=== PATIENT | female | born 1960 | race African-American/Black ===

== ENCOUNTER 2016-09-05 13:10 | Day surgery (SDC) | payer MEDICARE ==
[2004-07-27 06:17] VITALS: BP 107/60
[2016-09-05] VITALS (8 sets, daily range): BP systolic 112–136; BP diastolic 73–93; PULSE 90–102; TEMP 97.5–98.4
[~2016-09-05] VITALS: Ht 165.1 cm; Wt 63.3 kg
[~2016-09-05 13:10] MED LIST: AMOXICILLIN 8751 TAB PO; DEPAKOTE ER 50500 MG PO; DEPO; DIFLUCAN 100MG100 MG PO; IMITREX 25MG TA25 MG PO; MOTRIN 600600 MG/TAB PO; MULTI VITAMINS1 TAB PO; NO HOME MEDICATIONS; PERCOCET 325 MG1 TA2 PO; PREDNISONE20 MG PO; SINGULAIR 110 MG/TAB PO; SYNTHROID0.075 MG/T PO; SYNTHROID0.088 MG/T PO; TRIAMCINOLONE0.1% TP; [UNRECOGNIZED DRUG - OTHER] PO
== END 2016-09-05 16:50 | disposition home or self-care (01) ==
LOC: SDCO 13:10
DX: Z12.11 Encounter for screening for malignant neoplasm of colon (principal); K21.9 Gastro-esophageal reflux disease without esophagitis; K92.1 Melena; F41.9 Anxiety disorder, unspecified; K29.70 Gastritis, unspecified, without bleeding; B19.10 Unspecified viral hepatitis B without hepatic coma; I10 Essential (primary) hypertension; F41.0 Panic disorder [episodic paroxysmal anxiety]; M81.0 Age-related osteoporosis without current pathological fracture; R13.10 Dysphagia, unspecified; Z85.038 Personal history of other malignant neoplasm of large intestine; Z80.0 Family history of malignant neoplasm of digestive organs; Z86.010 Personal history of colon polyps
CPT/HCPCS: OP; J2250; J3010; J7030

== ENCOUNTER 2017-04-12 14:44 | Emergency (ER) | payer MEDICARE, MEDICAID ==
[~2017-04-12] VITALS: Ht 165.1 cm; Wt 65.5 kg
[2017-04-12 14:48] VITALS: BP 141/96; PULSE 100; TEMP 97.1
[2017-04-12] MEDS ORDERED: NASACORT OTC NS (15:13)
== END 2017-04-12 15:24 | disposition home or self-care (01) ==
LOC: COL.ER 14:44
DX: H69.83 Other specified disorders of Eustachian tube, bilateral (principal); J06.9 Acute upper respiratory infection, unspecified; E03.9 Hypothyroidism, unspecified; Z88.5 Allergy status to narcotic agent

== ENCOUNTER → 2017-04-18 | Outpatient (REF) ==
[~2017-04-18] MED LIST changes: +NASACORT OTC NS
== END ==
LOC: ZLAB.WCH 18:46
DX: Z01.89 Encounter for other specified special examinations (principal)

== ENCOUNTER → 2017-07-20 | Outpatient (REF) | LOC: ZLAB.WCH 14:23 | DX: Z01.89 Encounter for other specified special examinations (principal) ==

== ENCOUNTER 2017-10-17 12:53 | Emergency (ER) | payer MEDICARE, MEDICAID ==
[2004-07-27 06:17] VITALS: BP 107/60
[~2017-10-17] VITALS: Ht 165.1 cm; Wt 64.5 kg
[2017-10-17 13:01] VITALS: BP 127/91; TEMP 98.2
[2017-10-17] MEDS ORDERED: AMOXICILLI400 MG/51 PO (14:31)
[2017-10-17] MEDS ORDERED: SINGULAIR 110 MG/TAB PO (14:31)
[2017-10-17] MEDS ORDERED: LEVOXYL0.112 MG PO (14:32)
[2017-10-17 15:28] LABS: COLLECTION METHOD CLEAN CATCH
[2017-10-17 15:37] LABS: MUCOUS Present /lpf; PH 5 (5-8); URINE APPEARANCE Clear; URINE BACTERIA None Seen /hpf; URINE BILIRUBIN Negative (NEGATIVE); URINE BLOOD Negative (NEGATIVE); URINE COLOR Yellow; URINE GLUCOSE Negative (NEGATIVE); URINE KETONE Negative (NEGATIVE); URINE LEUKOCYTE ESTERASE 1+ (NEGATIVE); URINE NITRATE Negative (NEGATIVE); URINE PROTEIN(semi-quant) Negative (NEGATIVE); URINE RBC 0-2 /hpf; URINE UROBILINOGEN Negative (NEGATIVE)
[2017-10-17] MEDS ORDERED: MAGIC MOUTH PO (16:19)
[2017-10-17] MEDS ORDERED: DIFLUCAN150 MG PO (16:19)
[2017-10-17 16:23] VITALS: PULSE 82
== END 2017-10-17 16:24 | disposition home or self-care (01) ==
LOC: COL.ER 12:53
PROVIDERS: Nurse Practitioner
DX: B37.9 Candidiasis, unspecified (principal); R21 Rash and other nonspecific skin eruption

== ENCOUNTER 2019-07-28 17:12 | Emergency (ER) | payer MEDICARE, MEDICAID ==
[2004-07-27 06:17] VITALS: BP 107/60
[~2019-07-28] VITALS: Ht 165.1 cm; Wt 63.6 kg
[~2019-07-28 17:12] MED LIST changes: +AMOXICILLI400 MG/51 PO; +DIFLUCAN150 MG PO; +LEVOXYL0.112 MG PO; +MAGIC MOUTH PO
[2019-07-28 17:17] VITALS: BP 158/88; TEMP 98.7
[2019-07-28 18:53] VITALS: PULSE 88
== END 2019-07-28 18:53 | disposition home or self-care (01) ==
LOC: COL.ER 17:12
DX: R13.10 Dysphagia, unspecified (principal)

== ENCOUNTER → 2019-09-02 | Outpatient (CLI) | payer MEDICARE, MEDICAID | LOC: COL.RAD 10:20 | DX: K76.9 Liver disease, unspecified (principal); K82.9 Disease of gallbladder, unspecified ==

== ENCOUNTER 2021-12-03 09:37 | Day surgery (SDC) | payer MEDICARE, MEDICAID ==
[2004-07-27 06:17] VITALS: BP 107/60
[~2021-12-03] VITALS: Ht 165.1 cm; Wt 63.0 kg
[2021-12-03 11:28] VITALS: BP 136/78; PULSE 73
--- NOTE | 2021-12-03 11:28 | NUR ---
Pt returns to [facility] and is alert and oriented x3 ambulates to recliner. Denies pain or nausea. Pt is emotional and talking about passed surgeries. Pt provided with a muffin and juice. Call light in reach.
[2021-12-03 11:45] VITALS: BP 150/97; PULSE 89
[2021-12-03 12:00] VITALS: BP 144/93; PULSE 91
--- NOTE | 2021-12-03 12:00 | NUR ---
Resting in recliner. IV discontinued and site is free of redness.
--- NOTE | 2021-12-03 12:00 | NUR ---
IV discontinued and site is free of redness or swelling. Dresses self.
--- NOTE | 2021-12-03 12:00 | NUR ---
Pt doing well. Pt's friend notified and will pick her up in 20 minutes. Call light in reach.
--- NOTE | 2021-12-03 12:28 | NUR ---
Patient discharged to home after talking with Dr. Caballero and all questions answered. Dismissed to home driven by friend and taken to private vehicle per wheelchair and assisted into vehicle with instructions in hand,
[2021-12-03] MEDS ORDERED: DOXYCYCLINE 10100 MG PO (16:14)
[2021-12-03] MEDS ORDERED: LEVOXYL0.137 MG PO (16:15)
[2021-12-03] MEDS ORDERED: PRIL40 PO (16:15)
[2021-12-03 16:17] VITALS: BP 165/89; PULSE 94; TEMP 97.6
== END 2021-12-03 12:28 | disposition home or self-care (01) ==
LOC: SDCO 09:37
DX: Z12.11 Encounter for screening for malignant neoplasm of colon (principal); D12.5 Benign neoplasm of sigmoid colon
CPT/HCPCS: J2704; J3010; J7120